=== PATIENT | male | born 1980 | race Caucasian/White ===

== ENCOUNTER → 2018-01-04 | Outpatient (CLI) | payer BC ==
--- NOTE | 2018-01-04 13:02 | CONS ---
CONSULTATION DATE OF SERVICE: 01/04/2018 This 37-year-old gentleman has been evaluated in the sleep center for possible obstructive sleep apnea-hypopnea syndrome. The patient had been referred to sleep center by his physician and also by [facility] physical. HISTORY OF PRESENT ILLNESS/SLEEP-WAKE EVALUATION: Patient usual sleep schedule from 1 to 2 a.m. until 8 or 9 a.m. Sometimes he has problem with falling asleep. Patient reads in bedroom. He sleeps in different positions and he wakes up from sleep up to 2 times with snoring. No nocturia. No history of hypnagogic hallucinations, sleep paralysis or cataplexy. Sometimes patient feels sleepy while watching TV. He may take naps once a day around 1 p.m. occasionally. Amoret Sleepiness Scale is 4. PAST MEDICAL HISTORY: Positive for hypertension, also history of sinus problems. PAST SURGICAL HISTORY: Left hand surgery, surgery for abscess of the buttock. MEDICATIONS: Lotrel. SOCIAL HISTORY: Negative for smoking or using alcohol. FAMILY HISTORY: REVIEW OF SYSTEMS: Snoring, awakenings from sleep. PHYSICAL EXAMINATION: During physical exam, a 37-year-old gentleman without distress VITAL SIGNS: BP 128/97, HR 78, RR 18, height 5 feet 7 inches, weight 313, body mass index 49, temperature 98. Oxygen saturation room air 98% HEENT: PERRLA, EOMI. Oropharynx extremely low position of soft palate. Restriction of nasal breathing on the left side. Wide neck 19 inches in circumference. NECK: Supple, no JVD. Thyroid is not palpable. LUNGS: Clear to percussion and to auscultation. Good air exchange. No wheezing or rhonchi. HEART: S1, S2 regular. No murmurs, gallops, or rubs. ABDOMEN: Obese. EXTREMITIES: 1+ bilateral ankle edema. REGIONAL REHABILITATION DIRECTOR: Awake, alert, and oriented X3. Cranial nerves 2 to 7 intact. There is no fasciculation or atrophy. noted. No focal deficits observed. IMPRESSION: 1. Snoring, awakenings from sleep, extremely low position of soft palate, wide neck sometimes takes naps, obstructive sleep apnea-hypopnea syndrome. 2. Obesity, body mass index of 49. 3. Hypertension. 4. History of sinus problems. 5. Swelling of the legs. 6. Status post left hand surgery. 7. Status post surgical treatment of abscess of the buttock in the past. PLAN: 1. Polysomnography for evaluation of patient's breathing during sleep. 2. CPAP/BiPAP titration if sleep study confirms obstructive sleep apnea-hypopnea syndrome. 3. Preferable position during sleep on the side. 4. No driving if patient feels any sleepiness. 5. I will see patient for follow up visit to explain results of testing and following plan. Thank you very much for referring this patient for consultation. Sincerely, John Peoples MD, PhD, FAASM Diplomat of [employer] [facility] [place] MMODL / IJN: [id number] /
== END ==
LOC: SLEEP 11:22
PROVIDERS: ATTEND Internal Medicine
DX: G47.33 Obstructive sleep apnea (adult) (pediatric) (principal); E66.9 Obesity, unspecified; I10 Essential (primary) hypertension; J34.9 Unspecified disorder of nose and nasal sinuses; Z98.890 Other specified postprocedural states; M79.89 Other specified soft tissue disorders; Z68.42 Body mass index [BMI] 45.0-49.9, adult; Z79.899 Other long term (current) drug therapy
CPT/HCPCS: 99211